=== PATIENT | male | born 1980 | race Caucasian/White ===

== ENCOUNTER 2023-11-14 00:16 | Emergency (ER) | payer BC ==
[2023-11-14] MEDS ORDERED: ASPIRIN 81 MG CHEWABLE TABLET ONE (00:52)
[2023-11-14 00:55] LABS: Absolute Basophils 0.1 K/uL (0-0.5); Absolute Eosinophils 0.3 K/uL (0-0.5); Absolute Lymphocytes (CBC) 3.1 K/uL (0.7-4.9); Absolute Monocytes 0.8 K/uL (0.1-1.3); Absolute Neutrophil 4.7 K/uL (1.8-8.0); Basophils % 0.7 % (0-1.3); Eosinophils % 2.9 % (0-4.4); Hematocrit 45.4 % (39.6-49.0); Hemoglobin 15.6 g/dL (13.6-17.9); Lymphocytes % 34.4 % (15.3-44.8); MCHC 34.4 g/dL (32.0-36.0); MCV 90.2 fL (80-100); MPV 7.5 fL (7.6-11.3); Nucleated Red Blood Cells % 0.2 % (0-0); Platelets 254 thou/uL (152-406); RBC Red Blood Cell Count 5.04 M/uL (4.33-5.43); Red Cell Distribution Width 13.5 % (12.1-15.2)
[2023-11-14 01:01] LABS: PT Prothrombin Time 11.6 SECONDS (9.4-12.5); Protime INR 1.04
[2023-11-14 01:14] LABS: ALT/SGPT 58 U/L (16-61); AST/SGOT 21 U/L (15-37); Albumin 3.8 g/dL (3.4-5.0); Albumin/Globulin Ratio 1.2 (1.1-1.8); Alkaline Phosphatase 84 U/L (45-117); Anion Gap 8.6 mEq/L (5.0-15.0); BUN Blood Urea Nitrogen 15 mg/dL (7-18); Bicarbonate 25 mEq/L (21-32); Bilirubin Total 0.4 mg/dL (0.2-1.0); Globulin 3.1 g/dL (2.3-3.5); Glomerular Filtration Rate 85 ml/min (=/>90); Glucose Level 127 mg/dL (74-106); Magnesium 1.9 mg/dL (1.6-2.4); NT PRO-BNP 9 pg/mL (<125); Potassium 3.6 mEq/L (3.5-5.1); Protein, Total 6.9 g/dL (6.4-8.2); Sodium Level 140 mEq/L (136-145); Troponin High Sensitivity 4.8 pg/mL (<58.9)
[2023-11-14 01:16] LABS: Bilirubin Direct < 0.2 mg/dL (0-0.2); Bilirubin Indirect, Calculated 0.2 mg/dL (0.2-0.8)
--- NOTE | 2023-11-14 04:25 | EDPHYS ---
Physician Documentation [facility] Name: Keith Patel Age: 43 yrs Sex: Male : 1980 Arrival Date: 11/14/2023 Time: 00:16 Bed 20 Private MD: ED Physician Tito Bravo HPI: 11/13 00:38 This 43 yrs old Male presents to ER via Unassigned with complaints of Chest sp4 Pain. 18:49 43-year-old male presents with complaint of several weeks of left-sided intermittent sp4 dull chest pains that are nonexertional associated with left arm numbness and sometimes cold sweats. Patient denied dyspnea, patient states this has intensified in the last 3 days, 10 years ago patient had a stress test that was reported to be within normal limits. Patient and the past was on Zoloft and blood pressure medication as well. At this time he is not on any medications he is working from home does not exert himself physically but denies pain with any physical activity. . Historical: - Allergies: 00:40 Amoxicillin; vc1 - PMHx: 00:40 Hypertensive disorder; liver disease; vc1 - PSHx: 00:40 None; vc1 - Immunization history:: Adult Immunizations up to date, Client reports receiving the 2nd dose of the Covid vaccine. - Infectious Disease History:: Denies. - Social history:: Smoking status: Patient reports the use of cigarette tobacco products, smokes one pack cigarettes per day. - Family history:: not pertinent. ROS: 18:49 Constitutional: Negative for fever, chills, and weight loss, positive intermittent sp4 left-sided chest pain 18:49 All other systems are negative, Exam: 18:49 Constitutional: This is a well developed, well nourished patient who is awake, alert, sp4 and in no acute distress. Head/Face: Normocephalic, atraumatic. Eyes: Pupils equal round and reactive to light, extra-ocular motions intact. Lids and lashes normal. Conjunctiva and sclera are not injected. Cornea within normal limits. Periorbital areas with no swelling, redness, or edema. ENT: Nares patent. No nasal discharge, no septal abnormalities noted. Tympanic membranes are normal and external auditory canals are clear. Oropharynx with no redness, swelling, or masses, exudates, or evidence of obstruction, uvula midline. Mucous membranes moist. Neck: Trachea midline, no thyromegaly or masses palpated, and no cervical lymphadenopathy. Supple, full range of motion without nuchal rigidity, or vertebral point tenderness. Chest/axilla: Normal chest wall appearance and motion. Nontender with no deformity. No lesions are appreciated. Cardiovascular: Regular rate and rhythm with a normal S1 and S2. No gallops, murmurs, or rubs. Normal PMI, no JVD. No pulse deficits. Respiratory: Lungs have equal breath sounds bilaterally, clear to auscultation and percussion. No rales, rhonchi or wheezes noted. No increased work of breathing, no retractions or nasal flaring. Abdomen/GI: Soft, with normal bowel sounds. No distension or tympany. No guarding or rebound. No evidence of tenderness throughout. Back: No spinal tenderness. No costovertebral tenderness. Skin: Warm, dry with normal turgor. Normal color with no rashes, no lesions, and no evidence of cellulitis. MS/ Extremity: Pulses equal, no cyanosis. Neurovascular intact. Full, normal range of motion. Neuro: Awake and alert, GCS 15, oriented to person, place, time, and situation. Cranial nerves II-XII grossly intact. Motor strength 5/5 in all extremities. Sensory grossly intact. Psych: Awake, alert, with orientation to person, place and time. Behavior, mood, and affect are within normal limits 18:49 ECG was reviewed by the Attending Physician. EKG 0031 normal sinus rhythm EKG rate 82 bpm, right superior axis deviation, otherwise normal. Vital Signs: 00:38 BP 151 / 106; Pulse 83; Resp 16; Temp 97; Pulse Ox 97% ; Weight 97.52 kg; Height 5 ft. vc1 11 in. ; Pain 5/10; 00:58 BP 133 / 86; Pulse 80; Resp 16; Pulse Ox 97% ; dd2 01:43 BP 140 / 100; Pulse 77; Resp 18; Pulse Ox 97% on R/A; rg5 02:30 BP 138 / 93; Pulse 76; Resp 17; Pulse Ox 97% on R/A; rg5 03:29 BP 137 / 91; Pulse 73; Resp 17; Pulse Ox 97% on R/A; Pain 3/10; rg5 04:21 BP 136 / 94; Pulse 61; Resp 17; Pulse Ox 97% on R/A; rg5 00:38 Body Mass Index 29.99 (97.52 kg, 180.34 cm) vc1 00:38 Pain Scale: Adult vc1 03:29 Pain Scale: Adult rg5 MDM: 00:39 Patient medically screened. sp4 03:21 ED course: IMPRESSION: CTA CHEST: 1. No evidence of pulmonary embolism, aortic aneurysm sp4 or aortic dissection. 2. No evidence of acute intrathoracic disease. CTA ABDOMEN AND PELVIS: 1. No evidence of acute intra-abdominal or intrapelvic pathology. 2. Cholelithiasis without evidence of biliary ductal dilatation. 3. Decreased attenuation of the liver which may be due to underlying hepatic steatosis. 4. Small sliding-type hiatal hernia. 5. Normal CTA of the abdomen and pelvis. Electronically signed by: Larisa Benitez DO 11/14/2023 02:50 AM CDT . 18:53 Differential diagnosis: acute pericarditis, anxiety, coronary artery disease chest wall sp4 pain, congestive heart failure costochondritis, esophagitis, gastritis. HEART Score: History: Moderately Suspicious (1), ECG: Non specific repolarization disturbance / LBTB / PM (1), Age: < or = 45 years (0), Risk Factors: 1 or 2 risk factors (1), Troponin: < or = 1 x Normal Limit (0), Total Score = 3. The patient was given aspirin in the Emergency Department. Data reviewed: vital signs, nurses notes, lab test result(s), EKG, radiologic studies, CT scan. 11/13 00:39 Order name: Basic Metabolic Panel; Complete Time: 02:37 11/13 00:39 Order name: CBC with Diff; Complete Time: 02:37 11/13 00:39 Order name: LFT's; Complete Time: 02:37 11/13 00:39 Order name: Magnesium; Complete Time: 02:37 11/13 00:39 Order name: NT PRO-BNP; Complete Time: 02:37 11/13 00:39 Order name: PT-INR; Complete Time: 02:37 11/13 00:39 Order name: Troponin HS; Complete Time: 02:37 4 11/13 00:39 Order name: TSH; Complete Time: 02:37 sp4 11/13 00:39 Order name: T4 Free; Complete Time: 02:37 sp4 11/13 02:38 Order name: Troponin High Sensitivity: collect at 03:00; Complete Time: 04:20 sp4 11/13 00:39 Order name: XRAY Chest (1 view) sp4 11/13 00:48 Order name: CT Aorta for Dissection sp4 11/13 00:39 Order name: EKG; Complete Time: 00:39 sp4 11/13 00:39 Order name: Cardiac monitoring; Complete Time: 00:51 sp4 11/13 00:39 Order name: EKG - Nurse/Tech; Complete Time: 00:51 sp4 11/13 00:39 Order name: IV Saline Lock; Complete Time: 00:51 sp4 11/13 00:39 Order name: Labs collected and sent; Complete Time: 00:51 sp4 11/13 00:39 Order name: O2 Per Protocol; Complete Time: 00:51 sp4 11/13 00:39 Order name: O2 Sat Monitoring; Complete Time: 00:51 sp4 EC:49 Rate is 82 beats/min. Rhythm is regular. Right axis deviation noted. VT interval is sp4 normal. QRS interval is normal. QT interval is normal. No Q waves. T waves are Normal. No ST changes noted. Clinical impression: No evidence of ischemia. Interpreted by me. Reviewed by me. Administered Medications: 00:55 Drug: Aspirin PO Chewable Tablet 324 mg PO once; 81 mg tablets x 4 Route: PO; dd2 01:43 Follow up: Response: No adverse reaction rg5 Disposition Summary: 11/14/23 04:24 Discharge Ordered Notes: We recommend visit with [employer] for stress test Location: Home sp4 Problem: new sp4 Symptoms: have improved sp4 Condition: Stable sp4 Diagnosis - Chest pain, unspecified sp4 - Non cardiac Chest pain sp4 Followup: sp4 - With: Private Physician - When: 7 - 10 days - Reason: Recheck today's complaints Followup: sp4 - With: Yang Maddox MD - When: 7 - 10 days - Reason: Recheck today's complaints Discharge Instructions: - Discharge Summary Sheet sp4 - Nonspecific Chest Pain, Adult sp4 Forms: - Patient Portal Instructions sp4 Signatures: Dispatcher [employer] EDMS Suzi Patricio RN RN vc1 Tito Bravo MD MD sp4 BRIJESH PATIÑO RN RN dd2 Fermín Smiley RN rg5 Corrections: (The following items were deleted from the chart) 00:39 00:39 BASIC METABOLIC PANEL+C.LAB.BRZ ordered. EDMS EDMS 00:39 00:39 CBC+H.LAB.BRZ ordered. EDMS EDMS 00:39 00:39 HEPATIC FUNCTION+C.LAB.BRZ ordered. EDMS EDMS 00:39 00:39 MAGNESIUM+C.LAB.BRZ ordered. EDMS EDMS 00:39 00:39 PROBNP+C.LAB.BRZ ordered. EDMS EDMS 00:39 00:39 PROTIME (+INR)+COAG.LAB.BRZ ordered. EDMS EDMS 00:39 00:39 Troponin High Sensitivity+C.LAB.BRZ ordered. EDMS EDMS 00:48 00:48 Angio Aorta For Dissection+CT.RAD.BRZ ordered. EDMS EDMS 02:39 02:39 Troponin High Sensitivity+C.LAB.BRZ ordered. EDMS EDMS
--- NOTE | 2023-11-14 04:25 | ER ---
Nurse's Notes [facility] Name: Keith Patel Age: 43 yrs Sex: Male : 1980 Arrival Date: 11/14/2023 Time: 00:16 Bed 20 Private MD: Diagnosis: Chest pain, unspecified;Non cardiac Chest pain Presentation: 11/13 00:38 Chief complaint: Patient states: chest pain times 2 days, radiates to left arm and left vc1 arm numbness. Coronavirus screen: Client denies travel out of the [place] in the last 14 days. At this time, the client does not indicate any symptoms associated with coronavirus-19. Ebola Screen: Patient negative for fever greater than or equal to 101.5 degrees Fahrenheit, and additional compatible Ebola Virus Disease symptoms Patient denies exposure to infectious person. Patient denies travel to an Ebola-affected area in the 21 days before illness onset. No symptoms or risks identified at this time. Initial Sepsis Screen: Does the patient meet any 2 criteria? No. Patient's initial sepsis screen is negative. Does the patient have a suspected source of infection? No. Patient's initial sepsis screen is negative. Risk Assessment: Do you want to hurt yourself or someone else? Patient reports no desire to harm self or others. Onset of symptoms was November 11, 2023. Care prior to arrival: None. Activity prior to arrival: None. Mechanism of Injury: No Mechanism of Injury. Transition of care: patient was not received from another setting of care. 00:38 Method Of Arrival: Ambulatory vc1 00:38 Acuity: MARION 3 vc1 Triage Assessment: 00:41 General: Appears in no apparent distress. comfortable, well groomed, well developed, vc1 well nourished, Behavior is calm, cooperative, appropriate for age. Pain: Complains of pain in anterior aspect of left upper chest Pain radiates to left arm Pain currently is 7 out of 10 on a pain scale. Quality of pain is described as radiating, throbbing, Pain began 2-3 days ago. EENT: No deficits noted. No signs and/or symptoms were reported regarding the EENT system. Neuro: Level of Consciousness is awake, alert, obeys commands, Oriented to person, place, time, situation, Appropriate for age. Cardiovascular: Capillary refill < 3 seconds Patient's skin is warm and dry. Rhythm is sinus rhythm Chest pain is described as severe. Respiratory: Airway is patent Respiratory effort is even, unlabored, Respiratory pattern is regular, symmetrical. Derm: Skin is intact, is healthy with good turgor, Skin is dry, Skin is normal, Skin temperature is warm. Musculoskeletal: Circulation, motion, and sensation intact. Range of motion: intact in all extremities. Historical: - Allergies: 00:40 Amoxicillin; vc1 - PMHx: 00:40 Hypertensive disorder; liver disease; vc1 - PSHx: 00:40 None; vc1 - Immunization history:: Adult Immunizations up to date, Client reports receiving the 2nd dose of the Covid vaccine. - Infectious Disease History:: Denies. - Social history:: Smoking status: Patient reports the use of cigarette tobacco products, smokes one pack cigarettes per day. - Family history:: not pertinent. Screenin:41 [facility] ED Fall Risk Assessment (Adult) History of falling in the last 3 months, vc1 including since admission No falls in past 3 months (0 pts) Confusion or Disorientation No (0 pts) Intoxicated or Sedated No (0 pts) Impaired Gait No (0 pts) Mobility Assist Device Used No (0 pt) Altered Elimination No (0 pt) Score/Fall Risk Level 0 - 2 = Low Risk Oriented to surroundings, Maintained a safe environment, Educated pt \T\ family on fall prevention, incl call for assistance when getting out of bed. Abuse screen: Denies threats or abuse. Nutritional screening: No deficits noted. Tuberculosis screening: No symptoms or risk factors identified. Assessment: 01:00 General: Appears in no apparent distress. Behavior is calm, cooperative, appropriate dd2 for age. Pain: Complains of pain in chest Pain radiates to left arm Pain currently is 4 out of 10 on a pain scale. Neuro: Level of Consciousness is awake, alert, obeys commands, Oriented to person, place, time, situation, Appropriate for age. Cardiovascular: Reports chest pain, Patient's skin is warm and dry. Rhythm is sinus rhythm. Respiratory: No deficits noted. Airway is patent Respiratory effort is even, unlabored, Respiratory pattern is regular, symmetrical. GI: No deficits noted. No signs and/or symptoms were reported involving the gastrointestinal system. : No deficits noted. No signs and/or symptoms were reported regarding the genitourinary system. EENT: No deficits noted. No signs and/or symptoms were reported regarding the EENT system. Derm: No deficits noted. No signs and/or symptoms reported regarding the dermatologic system. Musculoskeletal: No deficits noted. No signs and/or symptoms reported regarding the musculoskeletal system. 01:43 Reassessment: Patient and/or family updated on plan of care and expected duration. Pain rg5 level reassessed. Patient is alert, oriented x 3, equal unlabored respirations, skin warm/dry/pink. 02:30 Reassessment: Patient and/or family updated on plan of care and expected duration. Pain rg5 level reassessed. Patient is alert, oriented x 3, equal unlabored respirations, skin warm/dry/pink. Patient states feeling better. 03:31 Reassessment: Patient and/or family updated on plan of care and expected duration. Pain rg5 level reassessed. Patient is alert, oriented x 3, equal unlabored respirations, skin warm/dry/pink. Patient states symptoms have improved. 04:21 Reassessment: Patient and/or family updated on plan of care and expected duration. Pain rg5 level reassessed. Patient is alert, oriented x 3, equal unlabored respirations, skin warm/dry/pink. Vital Signs: 00:38 BP 151 / 106; Pulse 83; Resp 16; Temp 97; Pulse Ox 97% ; Weight 97.52 kg; Height 5 ft. vc1 11 in. ; Pain 5/10; 00:58 BP 133 / 86; Pulse 80; Resp 16; Pulse Ox 97% ; dd2 01:43 BP 140 / 100; Pulse 77; Resp 18; Pulse Ox 97% on R/A; rg5 02:30 BP 138 / 93; Pulse 76; Resp 17; Pulse Ox 97% on R/A; rg5 03:29 BP 137 / 91; Pulse 73; Resp 17; Pulse Ox 97% on R/A; Pain 3/10; rg5 04:21 BP 136 / 94; Pulse 61; Resp 17; Pulse Ox 97% on R/A; rg5 00:38 Body Mass Index 29.99 (97.52 kg, 180.34 cm) vc1 00:38 Pain Scale: Adult vc1 03:29 Pain Scale: Adult rg5 ED Course: 00:20 Patient arrived in ED. ra3 00:27 BRIJESH PATIÑO, RN is Primary Nurse. dd2 00:38 Tito Bravo MD is Attending Physician. sp4 00:39 Triage completed. vc1 00:41 Arm band placed on right wrist. vc1 00:41 EKG completed in triage. Results shown to MD. vc1 00:44 Patient has correct armband on for positive identification. Placed in gown. Bed in low vc1 position. Call light in reach. desk monitor on. Pulse ox on. NIBP on. 00:45 Patient maintains SpO2 saturation greater than 95% on room air. vc1 00:49 Provided Education on: CALL LIGHT, MEDICATIONS, LABS, PROCEDURES. Door closed. Pillow dd2 given. Verbal reassurance given. 00:49 No provider procedures requiring assistance completed. Initial lab(s) drawn, by me, dd2 sent to lab. EKG done, by ED staff, reviewed by Tito Bravo MD. Inserted saline lock: 20 gauge in right antecubital area, using aseptic technique. Blood collected. Flushed with 10 mL NS. 00:51 T4 Free Sent. dd2 00:51 TSH Sent. dd2 00:51 Basic Metabolic Panel Sent. dd2 00:51 CBC with Diff Sent. dd2 00:51 LFT's Sent. dd2 00:51 Magnesium Sent. dd2 00:51 NT PRO-BNP Sent. dd2 00:51 PT-INR Sent. dd2 00:51 Troponin HS Sent. dd2 01:06 XRAY Chest (1 view) In Process Unspecified. EDMS 01:50 CT Aorta for Dissection In Process Unspecified. EDMS 02:30 Awaiting lab results, Awaiting CT Scan. rg5 02:30 Warm blanket given. rg5 03:35 Troponin High Sensitivity: collect at 03:00 Sent. oe 04:26 Yang Maddox MD is Referral Physician. sp4 04:32 IV discontinued, bleeding controlled, No redness/swelling at site. Pressure dressing rg5 applied. Administered Medications: 00:55 Drug: Aspirin PO Chewable Tablet 324 mg PO once; 81 mg tablets x 4 Route: PO; dd2 01:43 Follow up: Response: No adverse reaction rg5 Medication: 00:41 VIS not applicable for this client. vc1 Outcome: 04:24 Discharge ordered by . sp4 04:32 Discharged to home ambulatory, rg5 04:32 Condition: stable 04:32 Discharge instructions given to patient, Instructed on discharge instructions, follow up and referral plans. Demonstrated understanding of instructions, follow-up care, 04:33 Patient left the ED. rg5 Signatures: Dispatcher [employer] EDMS Cristobal Rao Vanessa RN RN vc1 Tito Bravo MD MD sp4 Lynne Reno ra3 Fermín Smiley RN RN rg5 BRIJESH PATIÑO RN RN dd2
[2023-11-14 04:43] VITALS: TEMP 97; O2SAT 97
[2023-11-14 05:03] VITALS: BP 136/94
--- NOTE | 2023-11-14 20:17 | RAD REPORT ---
EXAM DESCRIPTION: CT - Angio Aorta For Dissection - 11/14/2023 7:07 am CLINICAL HISTORY: 43 years Male ABD PAIN TECHNIQUE: Following the administration of intravenous contrast, multiple high-resolution axial imag es of the chest, abdomen and pelvis were performed followed by sagittal and coronal reconstructed alexandra ges. Coronal and sagittal MIP images were also performed.The CT study is performed according to ALARA (as low as reasonably achievable) or ALARA/IMAGE GENTLY, with automatic adjustment of mA and/or kV a ccording to patient size. Performed on: 11/14/2023 at 1:56 AM COMPARISON: CT abdomen and pelvis without contrast performed on 06/17/2022 FINDINGS: CTA CHEST: There is satisfactory visualization and contrast opacification of pulmonary arteries. No definite i ntra-arterial filling defects are identified to suggest acute or chronic pulmonary embolism. The thor acic aorta is normal in caliber and contour without evidence of aneurysm or dissection. The left vert ebral artery arises directly from the aortic arch, a normal developmental variant. The lungs are well expanded and are clear. There is minimal fibrosis and/or atelectasis in the depend ent lungs. There is no evidence of a pneumothorax. There are no pleural effusions. The central airway s are patent. The heart is normal in size. There is no pericardial effusion. There is no evidence of hilar, mediastinal or axillary lymphadenopathy. No acute osseous abnormality is identified. Non-Angiographic Findings: The thyroid gland is normal in size and configuration.. CTA ABDOMEN AND PELVIS: Liver: The liver is top normal in size and is normal in configuration. No focal hepatic abnormalities are identified. There is decreased attenuation of the liver which may be due to underlying hepatic s teatosis. Spleen: The spleen is normal in size and configuration. There is heterogeneous attenuation of the hubert er likely related to the arterial phase of contrast-enhancement. Gallbladder and bile duct: The gallbladder is partially distended and contains gallstones. There is no biliary ductal dilatation. Pancreas: The pancreas is grossly normal in size and configuration. Adrenal Glands: The adrenal glands are normal in size and configuration. Kidneys: The kidneys are normal in size and configuration. There is no evidence of hydronephrosis. Th ere is no evidence of nephrolithiasis. No definite solid or cystic renal mass lesions are identified. Stomach: The stomach is grossly normal. There is a small sliding-type hiatal hernia. Bowel: The bowel gas pattern is non specific and non obstructive. Appendix: The appendix is normal. Free air: There is no evidence of free air. Free fluid: There is no evidence of free fluid. Vasculature: The aorta is normal in caliber and contour. The celiac artery, superior mesenteric arter y, inferior mesenteric artery, bilateral renal arteries, common iliac arteries, internal and external iliac arteries and common femoral arteries are normal in caliber and contour. There is no evidence o f aneurysm or dissection. The inferior vena cava is grossly unremarkable. Lymphadenopathy: No pathologic lymphadenopathy is identified. Bladder: The bladder is well distended and smooth in contour. Reproductive: The prostate gland is grossly within normal limits. Bones: No acute osseous abnormalities are identified. Soft tissues: No focal soft tissue abnormalities are identified. IMPRESSION: CTA CHEST: 1. No evidence of pulmonary embolism, aortic aneurysm or aortic dissection. 2. No evidence of acute intrathoracic disease. CTA ABDOMEN AND PELVIS: 1. No evidence of acute intra-abdominal or intrapelvic pathology. 2. Cholelithiasis without evidence of biliary ductal dilatation. 3. Decreased attenuation of the liver which may be due to underlying hepatic steatosis. 4. Small sliding-type hiatal hernia. 5. Normal CTA of the abdomen and pelvis. Electronically signed by: Larisa Benitez DO 11/14/2023 02:50 AM CDT RP Due to temporary technical issues with the PACS/Fluency reporting system, reports are being signed by the in house radiologists without review as a courtesy to insure prompt reporting. The interpreting radiologist is fully responsible for the content of the report.
--- NOTE | 2023-11-14 21:02 | RAD REPORT ---
EXAM DESCRIPTION: RAD - Chest Single View - 11/14/2023 1:04 am CLINICAL HISTORY: Male, 43 years old, CHEST PAIN TECHNIQUE: 1 view COMPARISON: Same-day CT chest/abdomen/pelvis angiogram FINDINGS: SUPPORT DEVICES: Overlying leads. LUNGS/PLEURA: No consolidation, pleural effusion, or pneumothorax. HEART/MEDIASTINUM: Normal size and configuration. OTHER: No acute osseous findings. IMPRESSION: No acute cardiopulmonary findings. Electronically signed by: Shantanu Jaquez MD 11/14/2023 07:06 AM CDT Due to temporary technical issues with the PACS/Fluency reporting system, reports are being signed by the in house radiologists without review as a courtesy to insure prompt reporting. The interpreting radiologist is fully responsible for the content of the report.
--- NOTE | 2023-11-16 12:55 | EKG ---
Test Date: 2023-11-14 Test Time: 00:31:04 Health Researcher: [place] MEASUREMENT RESULTS: Intervals: Rate: 82 MO: 164 QRSD: 104 QT: 366 QTc: 427 Rosalia: P: MO: 164 QRS: 223 T: 195 INTERPRETIVE STATEMENTS: Normal sinus rhythm Right superior axis deviation Incomplete right bundle branch block ST & T wave abnormality, consider inferior ischemia Abnormal ECG No previous ECG available for comparison Electronically Signed On 11-16-23 12:48:55 CDT by Yang Maddox
== END 2023-11-14 04:33 | disposition home or self-care (01) ==
LOC: ER 00:16
DX: R07.89 Other chest pain (principal); F17.210 Nicotine dependence, cigarettes, uncomplicated; Z88.1 Allergy status to other antibiotic agents
CPT/HCPCS: 93005; 85025; 80048; 36415; 83735; 85610; 80076; 84443; 84484 ×2; 84439; 83880; 71275; 74175; 71045; 99285; Q9967